=== PATIENT | female | born 1980 | race African-American/Black ===

== ENCOUNTER 2016-11-23 12:15 | Emergency (ER) | payer MEDICARE, OTHER | END 2016-11-23 12:47 | disposition home or self-care (01) | LOC: CED 12:15 | DX: J30.9 Allergic rhinitis, unspecified (principal); F17.210 Nicotine dependence, cigarettes, uncomplicated; Z88.6 Allergy status to analgesic agent | CPT/HCPCS: 99282 ==

== ENCOUNTER 2017-01-12 10:46 | Emergency (ER) | payer MEDICARE ==
[2017-01-12 11:30] LABS: URINE SOURCE CLEAN CATCH
[2017-01-12 11:45] LABS: URINE APPEARANCE CLOUDY; URINE BILIRUBIN NEG (NEG); URINE BLOOD 1+ (NEG); URINE COLOR YELLOW; URINE GLUCOSE NEG (NEG); URINE KETONE NEG (NEG); URINE LEUKOCYTE ESTERASE 3+ (NEG); URINE NITRATE NEG (NEG); URINE PH 5.5 (5-8); URINE PROTEIN NEG (NEG); URINE SPECIFIC GRAVITY 1.025 (1.003-1.035)
[2017-01-12 11:47] LABS: CULTURE INDICATED? YES; URINE BACTERIA AUWI NEG (NEGATIVE); URINE SQUAMOUS EPITHELIAL CELL FEW /[HPF]
[2017-01-14 19:48] LABS: CHLAMYDIA TRACH Not Detected (Not Detected); N GONOR Not Detected (Not Detected)
== END 2017-01-12 14:00 | disposition home or self-care (01) ==
LOC: CFTX 10:46 → CED 10:46 → CFTX 11:41
PROVIDERS: Emergency Medicine; Nurse Practitioner
DX: H65.93 Unspecified nonsuppurative otitis media, bilateral (principal); N76.0 Acute vaginitis; A59.9 Trichomoniasis, unspecified; F32.9 Major depressive disorder, single episode, unspecified; F17.210 Nicotine dependence, cigarettes, uncomplicated; Z88.8 Allergy status to other drugs, medicaments and biological substances
CPT/HCPCS: 81003; 84703; 87086; 87491; 87591; 87808; 87905; 96372; 99283; J0696

== ENCOUNTER 2017-02-24 15:05 | Emergency (ER) | payer MEDICARE, OTHER ==
[~2017-02-24] VITALS: Ht 177.8 cm; Wt 105.2 kg
--- NOTE | ~2017-02-24 | CR63 ---
[facility] A Service of [facility] & [facility] RADIOLOGY TEXT RESULTS PATIENT: JULIANNA DOTSON LOCATION: CFTX : 84 UNIT #: [id number] AGE: [address]: Carmen Paniagua APRN SEX: F ORDER DR: [id number] [facility] [address] [facility] [address] [place], [place] [address] [id number] MR#: [id number] #: [id number] NAME: JULIANNA DOTSON : 1980 SEX: F STUDY DATE/TIME: 02/24/2017 15:58 UNIT: [facility] ROOM: STUDY DESCRIPTION: CR Chest 2 View Attending Physician: Carmen Paniagua A.P.R.N. Ordering Physician: Ed Eduardo Herndon M.D. Primary Care Physician: Rosalba Barth M.D. MEDICAL IMAGING REPORT This report is preliminary unless electronic signature is present EXAM PA and lateral chest INDICATION Right-sided rib pain two days with shortness of air and fall. FINDINGS PA and lateral examination of the chest upright shows a good expansion of the parenchyma with a normal distribution of the pulmonary vascularity. There is no indication of congestion, effusion, infiltrate, tumor, or nodular density. The pleural reflections and diaphragmatic contours are normal. The cardiac silhouette and mediastinal anatomy is within normal limits. IMPRESSION Normal chest. Dictated by... Damon Chen M.D. THIS IS AN ELECTRONICALLY VERIFIED REPORT Damon Chen M.D. at 02/25/2017 6:04 AM Karla TD: 02/25/2017 01:01 JOB #: [id number] MEDICAL IMAGING REPORT Page 1 of 1 COPY
== END 2017-02-24 16:35 | disposition home or self-care (01) ==
LOC: CED 15:05 → CFTX 15:05
DX: S20.211A Contusion of right front wall of thorax, initial encounter (principal); Z88.6 Allergy status to analgesic agent; W22.8XXA Striking against or struck by other objects, initial encounter
CPT/HCPCS: 71020; 99283